=== PATIENT | male | born 1960 | race African-American/Black ===

== ENCOUNTER 2022-11-24 15:14 | Emergency (ER) | payer MEDICAID ==
[~2022-11-24] VITALS: Ht 167.6 cm; Wt 60.0 kg
[2022-11-24 15:16] VITALS: BP 104/60
[2022-11-24 15:59] LABS: EOSINOPHILS % 4.3 % (0.0-5.0); HEMATOCRIT. 23.8 % (42.0-52.0); HEMOGLOBIN. 7.3 g/dL (14.0-18.0); LYMPHOCYTES % 33.6 % (20.0-50.0); MEAN CORPUSCULAR HEMOGLOBIN 25.3 pg (28.0-32.0); MEAN CORPUSCULAR VOLUME 82.7 fL (80.0-94.0); MEAN PLATELET VOLUME 6.8 fl (7.4-10.4); MONOCYTES % 13.3 % (2.0-8.0); NEUTROPHILS % 46.8 % (40.0-76.0); PLATELET 233 x1000/uL (130-400); RED BLOOD CELL COUNT 2.87 mill/uL (4.7-6.1)
[2022-11-24 16:04] LABS: CHLORIDE 104 mEq/L (98-107)
[2022-11-24 16:05] LABS: PROTHROMBIN TIME 10.7 sec (9.6-11.0)
[2022-11-24 16:52] LABS: CLARITY URINE CLEAR (CLEAR); COLOR URINE YELLOW (YELLOW); KETONES URINE TRACE (NEGATIVE); LEUKOCYTE ESTERASE URINE NEGATIVE (NEGATIVE); NITRITE URINE NEGATIVE (NEGATIVE); OCCULT BLOOD URINE NEGATIVE (NEGATIVE); PH URINE 5.5 (4.5-8.0); PROTEIN URINE 1+ (NEGATIVE); SPECIFIC GRAVITY URINE 1.015 (1.005-1.030); UROBILINOGEN URINE 0.2 E.U./dL (0.2-1.0)
== END 2022-11-24 18:33 | disposition left against medical advice (07) ==
LOC: ER 15:14
DX: R55 Syncope and collapse (principal); I10 Essential (primary) hypertension; E78.00 Pure hypercholesterolemia, unspecified
CPT/HCPCS: 36415; 71045; 80053; 81003; 83880; 84484; 85025; 93005; 99285